=== PATIENT | female | born 1945 | race Caucasian/White ===

== ENCOUNTER → 2017-07-26 16:36 | Outpatient (CLI) | payer MEDICARE, MEDICAID, SELFPAY | PROVIDERS: PCP Family Medicine; Visit Provider Family Medicine | DX: R00.2 Palpitations (principal) | CPT/HCPCS: 93005; 93225; 93226 ==

== ENCOUNTER → 2018-05-11 09:57 | Outpatient (CLI) | payer MEDICARE, MEDICAID, SELFPAY ==
--- NOTE | 2018-05-11 10:08 | XR_ITS ---
XR chest 2V HISTORY: Shortness of breath and cough ITS.REASON: BRONCHITIS ORDERING PHYSICIAN: Fady Turcios MD PATIENT AGE: 72 years COMPARISON: 04/28/2016 FINDINGS: The cardiomediastinal silhouette and pulmonary vascularity are within normal limits. The lungs are clear without infiltrates, suspicious nodules, or pleural effusions. No acute bony abnormalities. IMPRESSION: No change with no acute finding
== END ==
PROVIDERS: PCP Family Medicine; Visit Provider Family Medicine
DX: J40 Bronchitis, not specified as acute or chronic (principal); R06.02 Shortness of breath; R05 Cough
CPT/HCPCS: 71046

== ENCOUNTER 2020-01-16 16:49 | Observation (INO) | payer MEDICARE, MEDICAID, SELFPAY ==
[2020-01-16] VITALS (8 sets, daily range): BP systolic 123–162; BP diastolic 71–90; PULSE 69–94; RESP 16–21; TEMP 36.7; O2SAT 95–99; BMI 37.2; BMI 35.6
--- NOTE | 2020-01-16 17:00 | XR_ITS ---
PROCEDURE: XR CHEST PORTABLE CLINICAL HISTORY: dizziness COMPARISON: CR CXR CHEST(2 VIEWS-NOT PORTABLE) from 04/22/2016 CR CXR CHEST(2 VIEWS-NOT PORTABLE) from 04/28/2016 CR CXR2V XR chest 2V from 05/11/2018 FINDINGS: Cardiac size is upper limits of normal. No evidence of CHF. Small hiatal hernia suspected. No lobar consolidation or collapse. There is increased density in the right perihilar region which may be due to vascular overlap and may be confirmed with follow-up PA and lateral chest. Degenerative changes of shoulders. IMPRESSION: Small hiatal hernia otherwise negative. Please see above for detailed description Dictated by: Danny Diaz MD 01/17/2020 05:34 Danny Diaz MD in [facility] 01/17/2020 05:34
--- NOTE | 2020-01-16 17:22 | PC.NURSE ---
rad at BS for portable chest xray
[2020-01-16 17:55] LABS: Basophils % 0.1 % (0.1-2.0); Eosinophils # 0.2 K/mm3 (0.0-0.4); Eosinophils % 1.3 % (0.1-12.0); Hematocrit 46.4 % (37.0-47.0); Lymphocytes # 0.9 K/mm3 (0.7-4.5); Lymphocytes % 6.3 % (10-50); Mean Corpuscular HGB Conc 32.3 g/dL (31.8-35.4); Mean Corpuscular Hemoglobin 28.8 pg (27.0-31.2); Mean Corpuscular Volume 89.3 fl (81-99); Mean Platelet Volume 8.3 fl (7.4-10.4); Monocytes # 0.4 K/mm3 (0.1-1.0); Monocytes % 2.7 % (1.7-9.3); Neutrophils % 89.5 % (37.0-80.0); Platelet Count 342 K/mm3 (142-424); Red Blood Count 5.19 M/mm3 (4.20-5.40); Red Cell Distribution Width 13.5 % (11.5-17.5); White Blood Count 14.5 K/mm3 (4.8-10.8)
[2020-01-16 17:59] LABS: Chloride 102 mmol/L (98-107); MANUAL DIFFERENTIAL MANUAL DIFFERENTIAL (MANUAL DIFF); Sodium 137 mmol/L (136-145)
[2020-01-16 18:00] LABS: Potassium 3.9 mmoL/L (3.5-5.1)
--- NOTE | 2020-01-16 18:01 | HMH.EDGENADL ---
ED Disposition Clinical Impression: Vertigo Disposition: Admitted as Observation Condition on Discharge: Fair - Critical Care Critical Care Time: No Attestation: On 01/16/20, the high probability of a clinically significant, sudden or life threatening deterioration of the following system(s) required my full and direct attention, intervention and personal management. The time I documented below is in addition to time spent performing reported procedures but includes the following listed in this critical care notation. Medical Decision Making - Medical Records Medical records reviewed: Yes: I reviewed the patient's medical records. - [place] Inquiry Pt receiving controlled substance: Yes (Diazepam for vertigo) [place] was queried for this patient: No Risks and benefits of using a controlled substance: were not discussed with pt by me Vital Signs: 01/16/20 16:49 01/16/20 19:00 01/16/20 19:30 Pulse Rate [Left Radial] 83 90 69 Respiratory Rate 21 17 17 Blood Pressure [Right Arm] 156/87 H 162/90 H 141/79 H Blood Pressure Mean [Right Arm] 110 114 99 Blood Pressure Source [Right Arm] Automatic Cuff Automatic Cuff Automatic Cuff Blood Pressure Position [Right Arm] Sitting Supine Supine 02 Sat by Pulse Oximetry 97 95 99 Oxygen Delivery Method Room Air Room Air 01/16/20 20:00 01/16/20 20:30 Pulse Rate [Left Radial] 82 94 H Respiratory Rate 17 17 Blood Pressure [Right Arm] 146/71 H 135/87 Blood Pressure Mean [Right Arm] 96 103 Blood Pressure Source [Right Arm] Automatic Cuff Automatic Cuff Blood Pressure Position [Right Arm] Supine Supine 02 Sat by Pulse Oximetry 97 96 Oxygen Delivery Method Room Air Room Air - Lab Data Lab results reviewed: Yes: I reviewed the patient's lab results. Lab Results 01/16/20 17:46: WBC 14.5 H, RBC 5.19, Hgb 15.0, Hct 46.4, MCV 89.3, MCH 28.8, MCHC 32.3, RDW 13.5, Plt Count 342, MPV 8.3, Neut % (Auto) 89.5 H, Lymph % (Auto) 6.3 L, [place] % (Auto) 2.7, Eos % (Auto) 1.3, Baso % (Auto) 0.1, Neut # (Auto) 13.0 H, Lymph # (Auto) 0.9, [place] # (Auto) 0.4, Eos # (Auto) 0.2, Baso # (Auto) 0.0, Total Counted 100, Neutrophils % (Manual) 87 H, Lymphocytes % (Manual) 9 L, Monocytes % (Manual) 4, Platelet Estimate Normal, RBC Morphology Normal 01/16/20 17:46: Sodium 137, Potassium 3.9, Chloride 102, Carbon Dioxide 27, Anion Gap 11.9, BUN 16, Creatinine 0.80, Estimated Creat Clear 74, Estimated GFR 70, Est GFR ( Amer) 85, Glucose 130 H, Calcium 10.5 H, Total Bilirubin 0.5, AST 29, ALT 19, Alkaline Phosphatase 119, Total Protein 7.9, Albumin 4.6, Globulin 3.3 H, Albumin/Globulin Ratio 1.4, Amylase 41, Lipase 53 Result diagrams: 01/16/20 17:46 01/16/20 17:46 Orders (Tests/Meds): ED MEDICATIONS Generic Name Dose Route Start Last Admin Trade Name Freq PRN Reason Stop Dose Admin Sodium Chloride 1,000 mls @ 999 mls/hr 01/16/20 17:00 01/16/20 18:48 Sod Chlor 0.9% 1000ml Bag IV 01/16/20 18:00 999 mls/hr .Q1H1M EDUARDO Administration Discontinued Medications Generic Name Dose Route Start Last Admin Trade Name Freq PRN Reason Stop Dose Admin Diazepam 2.5 mg 01/16/20 18:28 01/16/20 18:49 Diazepam 10mg/2ml Syringe IV 01/16/20 18:29 2.5 mg ONCE ONE Administration Ondansetron HCl 4 mg 01/16/20 18:28 01/16/20 18:49 Ondansetron 4mg/2ml Vial IV 01/16/20 18:29 4 mg ONCE ONE Administration Promethazine HCl 12.5 mg 01/16/20 18:28 01/16/20 18:49 Promethazine Hcl 25mg/Ml 1ml Vial IV 01/16/20 18:29 12.5 mg ONCE ONE Administration Sodium Chloride 25 ml 01/16/20 18:28 01/16/20 18:48 Sodium Chloride 0.9% 25ml Bag IV 01/16/20 18:29 25 ml ONCE ONE Administration ORDERS Category Date Time Status CT head/brain wo con Stat Cat Scan 10/13/20 18:29 Taken XR chest portable Stat Exams 01/16/20 17:00 Taken Covid-19 IgG/IgM ([facility]) Stat Lab 01/16/20 17:46 Received - CT Data CT Scan: Head Time Received: 19:30 ([facility] fax) Preliminary Findings: Norm
[2020-01-16 18:02] LABS: Alanine Aminotransferase 19 U/L (12-78); Alkaline Phosphatase 119 U/L (38-126); Amylase 41 U/L (30-110); Anion Gap 11.9 mEq/L (5-15); Aspartate Amino Transferase 29 U/L (14-36); Bilirubin,Total 0.5 mg/dl (0.2-1.3); Blood Urea Nitrogen 16 mg/dl (7-17); Calcium 10.5 mg/dl (8.4-10.2); Carbon Dioxide 27 mmol/L (22.0-30.0); Creatinine Clearance Estimated 74 mL/min (50-200); Estimated Glomerular Filt Rate 70 ml/min (>60); GFR (African American) 85 ML/MIN (>60); Glucose 130 mg/dl (74-100); Lipase 53 U/L (23-300)
[2020-01-16 18:03] LABS: Albumin Level 4.6 g/dl (3.5-5.0); Albumin/Globulin Ratio 1.4 (1.1-1.8); Globulin 3.3 g/dL (1.3-3.2); Total Protein,Serum 7.9 g/dl (6.3-8.2)
[2020-01-16 18:22] LABS: Lymphocytes % 9 % (10-50); Monocytes % 4 % (2-9); Neutrophils % 87 % (42-76); RBC Morphology Normal; Total Cells Counted 100
--- NOTE | 2020-01-16 18:29 | CT_ITS ---
PROCEDURE: CT HEAD/BRAIN WO CON CLINICAL INDICATION: vertigo Vertigo and dizziness, nausea and vomiting COMPARISON: None TECHNIQUE: Axial images obtained. All CT scans at the facility use one or more dose reduction, viz: automated exposure control, ma/kV adjustment per patient size (including targeted exams where dose is matched to indication, i.e. head), or iterative reconstruction technique. FINDINGS: No midline shift, mass effect, intracranial hemorrhage, hydrocephalus, or extra-axial fluid collection is evident. There is a low-density area within the right frontal bone measuring approximately 1 cm at another smaller area just medial to this region. Possibly due to a hemangioma. Stability may be confirmed with follow-up.. No mastoid effusion. No sinus air-fluid level. IMPRESSION: 1. No acute finding. 2. Two low-density areas in the right frontal bone possibly related to hemangiomas. Stability may be confirmed with follow-up Dictated by: Danny Diaz MD 01/17/2020 06:58 Danny Diaz MD in [facility] 01/17/2020 06:58
[2020-01-16 18:41] LABS: Platelet Estimate Normal
--- NOTE | 2020-01-16 18:50 | ECG_ITS ---
APPROVED REPORT Exam: Resting ECG HR:91 bpm ECG Measurements Heart Rate 91 AXES AR 174 P 41 QRSd 142 QRS 47 QT 398 T -3 QTc 489 Conclusion Normal sinus rhythm Left atrial abnormality Right bundle branch block T wave abnormality, consider inferior ischemia Abnormal ECG Electronically signed by : Justyn Pavon, 01/21/2020 09:50:53
--- NOTE | 2020-01-16 18:50 | PC.NURSE ---
Pt to radiology
[2020-01-16 20:55] LABS: Coronavirus 19 IgG Antibody Negative (Negative); Coronavirus 19 IgM Antibody Negative (Negative)
--- NOTE | 2020-01-16 23:34 | PC.NURSE ---
patient up to floor via stretcher.
[2020-01-17] VITALS: BP 146/79; PULSE 94; RESP 22; TEMP 36.9; O2SAT 94
[2020-01-17 04:00] VITALS: BP 125/60; PULSE 61; RESP 18; TEMP 37.1; O2SAT 97
--- NOTE | 2020-01-17 04:01 | PC.NURSE ---
SINCE ADMISSION, A&OX3. DRAIN CLEANER PLUMBER EQUAL BILAT. LUNGS CLEAR T/O AUSCULTATION. TOLERATED RA WELL. PULSES +2. ABDOMEN NONDISTENDED ACTIVE BOWEL SOUNDS, SOFT AND NONTENDER PER PALPATION. C/O NAUSEA, HAGEN AND DIZZINESS THIS SHIFT. MEDICATED PER MAR FOR COMPLAINTS. ON REASSESSMENT PT NOTED IN BED RESTING WITH EYES CLOSED. VSS. WILL CONTINUE TO MONITOR.
[2020-01-17 08:00] VITALS: BP 142/61; PULSE 72; RESP 20; TEMP 36.8; O2SAT 95
--- NOTE | 2020-01-17 08:40 | HMH.HP ---
*Chief complaint: dizziness <Caty Fernandes 01/17/20 09:03> *History of present illness: Ms. Gomez is a 74-year-old female with a history of arthritis, esophageal reflux, dizziness and seasonal allergies who presented to [facility] emergency room for evaluation after experiencing severe dizziness with nausea and vomiting for 2 days. She states the first day she finally made it to the recliner and stayed there most of the day. She had much difficulty in going to her bathroom. She states she has not eaten or had much to drink due to her nausea and vomiting. She had to crawl on the floor in order to make it to the phone to seek help. With evaluation in the emergency room she had a CT of the head that showed no acute findings and 2 low-density areas in the right frontal bone possibly related to a hemangiomas. Chest x-ray showed no acute changes. White blood cell count was noted to be at 14,500 with 89.5% neutrophils. Blood chemistries show normal electrolytes with a BUN of 16 and creatinine of 0.8. COVID IgG and IgM were both negative. Patient was seen in the office in October 2019 with dizziness and treated for seasonal allergies with antihistamines and Flonase. She states this did help. She has never experienced dizziness to this extent. She denies chest pain and shortness of breath. She does have a headache this morning and is somewhat sleepy. She did receive IV Phenergan and was started on normal saline at 100 an hour after receiving bolus fluids. She is also received IV diazepam for the vertigo as well as meclizine. She has been up to the bedside commode and the dizziness persists although she is not quite as nauseated and has not vomited. <Caty Fernandes - 01/17/20 09:03> [facility] History Medical History: Reports:: Atrial Fibrillation, Gastroesophageal Reflux Disease(GERD), Palpitations Denies:: Diabetes Mellitus Type 1 <Caty Fernandes 01/17/20 09:03> *Have you ever received a pneumonia vaccine?: No <Caty Fernandes 01/17/20 09:03> *Have you received a flu vaccine this season?: No <Caty Fernandes 01/17/20 09:03> Other Medical History: Reports: Arthritis <Caty Fernandes 01/17/20 09:03> Other Surgeries: Yes: Appendectomy, Organ Transplant (Kidney), Tubal Ligation, Other <Caty Fernandes 01/17/20 09:03> - *Social History Last grade of school completed: GED <Caty Fernandes 01/17/20 09:03> Smoking Status: Never smoker <Caty Fernandes 01/17/20 09:03> Alcohol Intake: never <Caty Fernandes 01/17/20 09:03> *Occupational Status:: retired <Diya Fernandeshy 01/17/20 09:03> Household Members: none <[facility] 01/17/20 09:03> *Travel in the last 8 weeks: None <[facility] 01/17/20 09:03> Family Hx:: Cancer, Coronary Artery Disease, Diabetes, Heart Attack, Hyperlipidemia, Hypertension, Kidney Disease, Stroke, Substance abuse, Alcoholism <Diya Fernandeshy 01/17/20 09:03> Review of Systems - Constitutional Reports lack of energy, Denies chills, Denies fever(s) <Diya Fernandeshy 01/17/20 09:03> - Eyes Reports change in vision <DeanCaty 01/17/20 09:03> - ENT Reports headache(s), Denies facial pain, Denies sore throat <Diya Fernandeshy 01/17/20 09:03> - *Cardiovascular Reports leg swelling, Denies chest pain <DenaCaty 01/17/20 09:03> - *Respiratory Denies cough, Denies shortness of breath <[facility] 01/17/20 09:03> - *Gastrointestinal Reports bloating, Reports nausea, Reports vomiting, Denies abdominal pain, Denies vomiting blood, Denies black, tarry stools <iDya Fernandeshy 01/17/20 09:03> - *Genitourinary Denies difficulty urinating, Denies painful urination <Diya Fernandeshy 01/17/20 09:03> - *Musculoskeletal Reports joint pain <DenaCaty 01/17/20 09:03> - *Neurologic Reports dizziness, Denies abnormal hearing, Denies abnormal speech, Denies confusion, Denies headache(s), Denies numbness, Denies fainting, Denies weakness <Caty Fernandes - 01/17/20 09:03>
--- NOTE | 2020-01-17 09:27 | HMH.PHAVTE ---
[facility] Pharmacy VTE Monitoring - Patient Demographics Admission date: 01/16/20 Report Date: 01/17/20 Time: 09:27 Allergies/Adverse Reactions: Patient Allergies codeine [CODEINE] Allergy (Unknown, Verified 01/16/20 18:37) DIZZY/N/V Height: 1.6 m Weight: 91.257 kg Patient Problems: Current Active Problems Vertigo (Acute) Nausea and vomiting (Acute) Leukocytosis (Acute) - VTE Risk Labs: VTE Related Lab Results Hgb 15.0 g/dL (12.2-16.2) 01/16/20 17:46 Hct 46.4 % (37.0-47.0) 01/16/20 17:46 Plt Count 342 K/mm3 (142-424) 01/16/20 17:46 BUN 16 mg/dl (7-17) 01/16/20 17:46 Creatinine 0.80 mg/dl (0.52-1.04) 01/16/20 17:46 Estimated Creat Clear 74 mL/min (50-200) 01/16/20 17:46 VTE Score: 4 VTE Risk Level: Low Risk - Prophylaxis VTE Prophylaxis Ordered?: Yes Types of VTE Prophylaxis: TEDS Knee High Location of Applied Device: Bilateral Lower Extremeties
[2020-01-17 09:40] LABS: Basophils % 0.3 % (0.1-2.0); Eosinophils # 0.1 K/mm3 (0.0-0.4); Hematocrit 41.6 % (37.0-47.0); Lymphocytes # 2.3 K/mm3 (0.7-4.5); Lymphocytes % 15.9 % (10-50); Mean Corpuscular HGB Conc 30.4 g/dL (31.8-35.4); Mean Corpuscular Hemoglobin 27.7 pg (27.0-31.2); Mean Corpuscular Volume 91.2 fl (81-99); Mean Platelet Volume 8.5 fl (7.4-10.4); Neutrophils # 10.9 K/mm3 (1.8-7.8); Neutrophils % 75.8 % (37.0-80.0); Platelet Count 296 K/mm3 (142-424); Red Blood Count 4.56 M/mm3 (4.20-5.40); Red Cell Distribution Width 13.7 % (11.5-17.5); White Blood Count 14.4 K/mm3 (4.8-10.8)
[2020-01-17 10:33] LABS: Hemoglobin 12.8 g/dL (12.2-16.2)
--- NOTE | 2020-01-17 11:52 | PC.NURSE ---
Pt alert and oriented and able to make needs known. RR even and unlabored. Pt did receive pepcid r/t acid reflux and has not c/o since receiving. Lungs cta, bs x 4, has eulalia up to bsc to urinate. Awaiting another urination for u/a. Remains safe. CB in reach. VSS.Giovanni hose in place to ble.
[2020-01-17 15:03] LABS: Microscopic, Urine URINE MICROSCOPIC (MICROSCOPIC)
[2020-01-17 15:05] LABS: Appearance,Urine CLEAR (Clear); Bilirubin,Urine Negative (Negative); Blood, Urine Negative (Negative); Color,Urine YELLOW (Yellow); Glucose,Urine (UA) Negative (Negative); Ketones,Urine Negative (Negative); Leukocyte Esterase,Urine 1+ (Negative); Nitrate,Urine Negative (Negative); PH,Urine 6.5 (5.0-8.5); Protein,Urine Negative (Negative); Urobilinogen,Urine 0.2 EU/dl (0.2)
[2020-01-17 15:20] VITALS: BP 150/67; PULSE 52; RESP 18; TEMP 36.8; O2SAT 95
--- NOTE | 2020-01-17 17:42 | PC.NURSE ---
IV in L AC infiltrated, new IV was placed in LAC with NS 100 ml/hr. CB in reach. Pt has resting most of shift. No c/o at this time. Has been up to bsc. VSS. MX continues. Alert and oriented x 4. Has tolerated diet this shift.
--- NOTE | 2020-01-17 19:17 | PC.NURSE ---
report given to jillian
[2020-01-17 20:04] VITALS: BP 148/88; PULSE 60; RESP 14; TEMP 37.1; O2SAT 95
--- NOTE | 2020-01-18 03:16 | PC.NURSE ---
Pt complained of dizziness while in bed, while reassessing pt condition pt noted to be sleeping, Complained of headache and administered tylenol per MAR, effectiveness noted, No complaints of N/V/D or SOA during shift, TEDs in place, IV intact and patent
[2020-01-18 04:00] VITALS: BP 156/78; PULSE 54; RESP 14; TEMP 36.6; O2SAT 95
--- NOTE | 2020-01-18 05:39 | PC.NURSE ---
Bed scale not working and patient was too dizzy to get on a standing scale. Patient's nurse notified.
--- NOTE | 2020-01-18 05:52 | PC.NURSE ---
Bedscale not working on Pts bed, Pt reports too dizzy to stand, will try to re-weigh at later time, will pass on to oncoming nurse
--- NOTE | 2020-01-18 08:43 | HMH.ACPN2 ---
<Mellisa Lucas - Last Filed: 01/18/20 08:43> Internal Medicine - PN: Subj *Date: 01/18/20 *Time: 07:40 Interval history: She has rested well overnight. She is still experiencing dizziness and vertigo with movement. She has nausea only with severe dizziness and has tolerated clears without emesis. She denies any pain. Exam Vital signs and Labs for Last 24 Hours: Temp Pulse Resp BP Pulse Ox 97.8 F 54 L 14 156/78 H 95 01/18/20 04:00 01/18/20 04:00 01/18/20 04:00 01/18/20 04:00 01/18/20 04:00 Laboratory Results - last 24 hr 01/17/20 09:20: WBC 14.4 H, RBC 4.56, Hgb 12.8 D, Hct 41.6, MCV 91.2, MCH 27.7, MCHC 30.4 L, RDW 13.7, Plt Count 296, MPV 8.5, Neut % (Auto) 75.8, Lymph % (Auto) 15.9, [place] % (Auto) 7.0, Eos % (Auto) 1.0, Baso % (Auto) 0.3, Neut # (Auto) 10.9 H, Lymph # (Auto) 2.3, [place] # (Auto) 1.0, Eos # (Auto) 0.1, Baso # (Auto) 0.0 01/17/20 14:39: Urine Color Yellow, Urine Appearance Clear, Urine pH 6.5, Ur Specific [place] 1.010, Urine Protein Negative, Urine Glucose (UA) Negative, Urine Ketones Negative, Urine Blood Negative, Urine Nitrate Negative, Urine Bilirubin Negative, Urine Urobilinogen 0.2, Ur Leukocyte Esterase 1+ A, Urine WBC 5-10, Ur Squamous Epith Cells 5-10 I & O for Last 24 hours: Intake & Output 01/15/20 01/16/20 01/17/20 01/18/20 11:59 11:59 11:59 11:59 Intake Total 1653 / 1653 2958 / 2958 Output Total 650 / 650 2300 / 2300 Balance 1003 / 1003 658 / 658 Weight 201 lb 3 oz 0 oz - Constitutional no acute distress - *Routine HEENT Exam Head: Present: normocephalic ENT: Present: mucous membranes moist - *Routine Respiratory Exam Present: CTA bilaterally - *Routine Cardiovascular Exam Present: RRR - *Routine Abdominal Exam Present: soft, normoactive bowel sounds. Absent: tenderness, distended, guarding, firm, rigid - *Routine Extremities Exam Present: full ROM, pulses intact, GATITO stockings. Absent: edema, calf tenderness - *Routine Neurological Exam Present: alert, oriented X3, normal speech Assessment and Plan (1) Vertigo Status: Acute Category: Medical Code(s): R42 - Dizziness and giddiness (2) Nausea and vomiting Status: Acute Category: Medical Code(s): R11.2 - Nausea with vomiting, unspecified (3) Leukocytosis Status: Acute Category: Medical Code(s): D72.829 - Elevated white blood cell count, unspecified - Assessment and plan all Dx Assessment and Plan for all problems:: She has been started on Levaquin for UTI. Culture pending. Will advance her diet. Further per Dr. Knox. <Kalyan Knox - Last Filed: 01/18/20 13:45> Internal Medicine - PN: Subj *Date: 01/18/20 *Time: 13:41 Exam Vital signs and Labs for Last 24 Hours: Temp Pulse Resp BP Pulse Ox 97.8 F 54 L 14 156/78 H 95 01/18/20 04:00 01/18/20 04:00 01/18/20 04:00 01/18/20 04:00 01/18/20 04:00 Laboratory Results - last 24 hr 01/17/20 14:39: Urine Color Yellow, Urine Appearance Clear, Urine pH 6.5, Ur Specific [place] 1.010, Urine Protein Negative, Urine Glucose (UA) Negative, Urine Ketones Negative, Urine Blood Negative, Urine Nitrate Negative, Urine Bilirubin Negative, Urine Urobilinogen 0.2, Ur Leukocyte Esterase 1+ A, Urine WBC 5-10, Ur Squamous Epith Cells 5-10 I & O for Last 24 hours: Intake & Output 01/16/20 01/17/20 01/18/20 01/19/20 11:59 11:59 11:59 11:59 Intake Total 1653 / 1653 3438 / 3438 Output Total 650 / 650 2300 / 2300 Balance 1003 / 1003 1138 / 1138 Weight 201 lb 3 oz 0 oz Assessment and Plan (1) Vertigo Status: Acute Category: Medical Code(s): R42 - Dizziness and giddiness (2) Nausea and vomiting Status: Acute Category: Medical Code(s): R11.2 - Nausea with vomiting, unspecified (3) Leukocytosis Status: Acute Category: Medical Code(s): D72.829 - Elevated white blood cell count, unspecified - Assessment and plan all Dx Assessment and Plan for all problems::
--- NOTE | 2020-01-18 10:40 | SW/DCPLANNER ---
Addendum entered by Juana Harris 01/22/20 13:00: I have contacted Vianney Vernon regarding [facility] for this patient. Original Note: I have spoke with this patient regarding transportation at discharge: it was brought to my attention that this patient stated in morning rounds she would not have a ride home at discharge. I spoke with this patient this morning and she stated that she will have a ride home. Patient stated she spoke with a friend this morning who could transport her. I have provided patient with a [employer] sheet in case she needs it in the future. Patient may discharge home tomorrow.
--- NOTE | 2020-01-18 16:46 | PC.NURSE ---
No acute changes to note from previous assessment. NO IV. Taking all oral meds and tolerating her bland diet well. Urine output over 2000 ml of clear yellow urine this shift. Denies vertigo at this time.
[2020-01-18 17:46] VITALS: BP 141/76; PULSE 59; RESP 20; TEMP 36.8; O2SAT 100
--- NOTE | 2020-01-18 19:11 | PC.NURSE ---
report given to zachary
[2020-01-18 20:00] VITALS: BP 144/50; PULSE 64; RESP 20; TEMP 36.9; O2SAT 94
[2020-01-18 20:15] VITALS: PULSE 64; RESP 20; O2SAT 94
[2020-01-19 04:00] VITALS: BP 167/85; PULSE 58; RESP 18; TEMP 36.6; O2SAT 93
[2020-01-19 05:16] VITALS: BMI 35.6
--- NOTE | 2020-01-19 05:53 | PC.NURSE ---
shift summary, no acute changes since prior assessment, pt has rested well t/o shift, pt has had no complaints of N/V or dizziness this shift, pt has used BSC this shift
[2020-01-19 08:00] VITALS: BP 150/73; PULSE 67; RESP 16; TEMP 36.6; O2SAT 93
[2020-01-19 08:30] VITALS: O2SAT 93
--- NOTE | 2020-01-19 08:48 | HMH.ACPN2 ---
<Mellisa Lucas - Last Filed: 01/19/20 08:48> Internal Medicine - PN: Subj *Date: 01/19/20 *Time: 07:40 Interval history: Pt is resting quietly in bed. She denies pain. She continues with dizziness with any movement, sometimes accompanied by nausea. She has tolerated diet well. She is voiding qshift. She has been unable to produce BM since admission and would like to have miralax started. Exam Vital signs and Labs for Last 24 Hours: Temp Pulse Resp BP Pulse Ox 97.8 F 67 16 150/73 H 93 L 01/19/20 08:00 01/19/20 08:00 01/19/20 08:00 01/19/20 08:00 01/19/20 08:00 Laboratory Results - last 24 hr 01/17/20 14:39: Urine Color Yellow, Urine Appearance Clear, Urine pH 6.5, Ur Specific [place] 1.010, Urine Protein Negative, Urine Glucose (UA) Negative, Urine Ketones Negative, Urine Blood Negative, Urine Nitrate Negative, Urine Bilirubin Negative, Urine Urobilinogen 0.2, Ur Leukocyte Esterase 1+ A, Urine WBC 5-10, Ur Squamous Epith Cells 5-10 I & O for Last 24 hours: Intake & Output 01/16/20 01/17/20 01/18/20 01/19/20 11:59 11:59 11:59 11:59 Intake Total 1653 / 1653 3438 / 3438 1100 / 1100 Output Total 650 / 650 2300 / 2300 4000 / 4000 Balance 1003 / 1003 1138 / 1138 -2900 / -2900 Weight 201 lb 3 oz 0 oz 201 lb 4 oz Microbiology Reports for the Last 24 Hours: Microbiology 01/17/20 14:39 Urine,Clean Catch Urine Culture - Preliminary Gram Negative Rods - Constitutional no acute distress - *Routine HEENT Exam Head: Present: normocephalic ENT: Present: mucous membranes moist - *Routine Respiratory Exam Present: CTA bilaterally - *Routine Cardiovascular Exam Present: RRR - *Routine Abdominal Exam Present: soft, normoactive bowel sounds. Absent: tenderness, distended, guarding, firm, rigid - *Routine Extremities Exam Present: full ROM, pulses intact. Absent: edema, calf tenderness - *Routine Neurological Exam Present: alert, oriented X3, normal speech Assessment and Plan (1) Vertigo Status: Acute Category: Medical Code(s): R42 - Dizziness and giddiness (2) Nausea and vomiting Status: Acute Category: Medical Code(s): R11.2 - Nausea with vomiting, unspecified (3) Leukocytosis Status: Acute Category: Medical Code(s): D72.829 - Elevated white blood cell count, unspecified - Assessment and plan all Dx Assessment and Plan for all problems:: Will add miralax. Continue current care. Further per Dr. Knox. <Kalyan Knox - Last Filed: 01/19/20 13:22> Internal Medicine - PN: Subj *Date: 01/19/20 *Time: 13:19 Exam Vital signs and Labs for Last 24 Hours: Temp Pulse Resp BP Pulse Ox 97.8 F 67 16 150/73 H 93 L 01/19/20 08:00 01/19/20 08:00 01/19/20 08:00 01/19/20 08:00 01/19/20 08:30 Laboratory Results - last 24 hr 01/17/20 14:39: Urine Color Yellow, Urine Appearance Clear, Urine pH 6.5, Ur Specific [place] 1.010, Urine Protein Negative, Urine Glucose (UA) Negative, Urine Ketones Negative, Urine Blood Negative, Urine Nitrate Negative, Urine Bilirubin Negative, Urine Urobilinogen 0.2, Ur Leukocyte Esterase 1+ A, Urine WBC 5-10, Ur Squamous Epith Cells 5-10 I & O for Last 24 hours: Intake & Output 01/17/20 01/18/20 01/19/20 01/20/20 11:59 11:59 11:59 11:59 Intake Total 1653 / 1653 3438 / 3438 1100 / 1100 Output Total 650 / 650 2300 / 2300 4000 / 4000 Balance 1003 / 1003 1138 / 1138 -2900 / -2900 Weight 201 lb 3 oz 0 oz 201 lb 4 oz Microbiology Reports for the Last 24 Hours: Microbiology 01/17/20 14:39 Urine,Clean Catch Urine Culture - Preliminary Gram Negative Rods Assessment and Plan (1) Vertigo Status: Acute Category: Medical Code(s): R42 - Dizziness and giddiness (2) Nausea and vomiting Status: Acute Category: Medical Code(s): R11.2 - Nausea with vomiting, unspecified (3) Leukocytosis Status: Acute Category: M
[2020-01-19 16:00] VITALS: BP 145/70; PULSE 60; RESP 20; TEMP 37; O2SAT 94
--- NOTE | 2020-01-19 16:16 | PC.NURSE ---
A&OX4. PT HAS TOLERATED ROOM AIR WELL THROUGHOUT SHIFT. RESPIRATIONS REGULAR AND UNLABORED. LUNG SOUNDS BILATERALLY CLEAR. NO COUGH NOTED. +2 PULSES NOTED THROUGHOUT. HAND CHARGE AIDE EQUAL. SOFT AND TENDER ABDOMEN. HYPOACTIVE BOWEL SOUNDS HEARD IN ALL 4 QUADRANTS. PT REPORTS NOT HAVING BM SINCE WEDNESDAY. MIRALAX WAS GIVEN AND PT STATES IT DIDN'T HELP. SHE WAS JUST PASSING FLATUS. DR RIZZO NOTIFIED AND DULCOLAX SUPPOSITORY WAS ORDERED. IT WAS ADMINISTERED AND PT JUST REPORTED HAVING A BM. CLEAR YELLOW URINE NOTED IN BSC. NO COMPLAINS OF PAIN OR NAUSEA THUS FAR. PT STATES SHE IS STILL DIZZY. SHE USES THE BSC INDEPENDENTLY. PT HAS BEEN ENCOURAGED TO USE CALL LIGHT IF SHE NEEDS HELP. PT IS CURRENTLY YLING IN BED RESTING. CALL LIGHT WITHIN REACH. BED IN LOWEST POSITION. VSS. WILL CONTINUE TO MONITOR.
--- NOTE | 2020-01-19 19:20 | PC.NURSE ---
report given to renetta
[2020-01-19 19:55] VITALS: BP 149/74; PULSE 70; RESP 16; TEMP 36.9; O2SAT 93
--- NOTE | 2020-01-20 01:23 | PC.NURSE ---
aware that pt has no IV access.
[2020-01-20 04:12] VITALS: BP 151/88; PULSE 63; RESP 18; TEMP 36.8; O2SAT 98
[2020-01-20 05:11] VITALS: BMI 35.6
--- NOTE | 2020-01-20 05:58 | PC.NURSE ---
shift summary, no acute changes since prior nurse's assessment this shift, pt has rested t/o shift, pt has had no complaints of N/V on this nurse, VSS
[2020-01-20 07:56] VITALS: BP 132/85; PULSE 67; RESP 20; TEMP 36.7; O2SAT 97
--- NOTE | 2020-01-20 08:46 | HMH.ACPN2 ---
Internal Medicine - PN: Subj *Date: 01/20/20 *Time: 08:46 Interval history: Nausea and vomiting have resolved. She is tolerating her diet. She is still dizzy but is tolerating activity better and feels she can manage at home with a walker. Exam Vital signs and Labs for Last 24 Hours: Temp Pulse Resp BP Pulse Ox 98.1 F 67 20 132/85 97 01/20/20 07:56 01/20/20 07:56 01/20/20 07:56 01/20/20 07:56 01/20/20 07:56 I & O for Last 24 hours: Intake & Output 01/17/20 01/18/20 01/19/20 01/20/20 11:59 11:59 11:59 11:59 Intake Total 1653 / 1653 3438 / 3438 1100 / 1100 600 / 600 Output Total 650 / 650 2300 / 2300 4000 / 4000 1300 / 1300 Balance 1003 / 1003 1138 / 1138 -2900 / -2900 -700 / -700 Weight 201 lb 3 oz 0 oz 201 lb 4 oz 201 lb Microbiology Reports for the Last 24 Hours: Microbiology 01/17/20 14:39 Urine,Clean Catch Urine Culture - Final Escherichia coli Narrative: Alert. No distress. Lungs clear to auscultation. Heart is regular. Abdomen soft and nondistended with no tenderness. Assessment and Plan (1) Vertigo Status: Acute Category: Medical Code(s): R42 - Dizziness and giddiness (2) Nausea and vomiting Status: Acute Category: Medical Code(s): R11.2 - Nausea with vomiting, unspecified (3) E. coli UTI Status: Acute Category: Medical Code(s): N39.0 - Urinary tract infection, site not specified; B96.20 - Unspecified Escherichia coli [E. coli] as the cause of diseases classified elsewhere - Assessment and plan all Dx Assessment and Plan for all problems:: Plan for discharge home today. Order sent to [facility] for Rollator walker. She will continue on meclizine for her dizziness. Continue Cipro 500 twice daily to complete course of treatment for her UTI. Will investigate obtaining a Lifeline monitor for her at home.
[2020-01-20 09:00] VITALS: O2SAT 97
--- NOTE | 2020-01-20 12:30 | PC.NURSE ---
A&OX4. PT TOLERATED ROOM AIR WELL THROUGHOUT SHIFT. RESPIRATIONS REGULAR AND UNLABORED. LUNG SOUNDS BILATERALLY CLEAR. SOFT AND NONTENDER ABDOMEN. ACTIVE BOWEL SOUNDS HEARD IN ALL 4 QUADRANTS. NO BM REPORTED THUS FAR. PT VOIDS PER BSC INDEPENDENTLY. HAND BREAKER OILER EQUAL. +2 PULSES NOTED THROUGHOUT. PT IS BEING DISCHARGED. LEESA DROPPED OFF WALKER FOR PT TO TAKE CARE. PHARMACY EDUCATED PT ON MEDICATIONS. DISCHARGE INSTRUCTIONS WERE GIVEN TO PT AND SHE VERBALIZED UNDERSTANDING. PT IS RESTING IN BED AWAITING RIDE. CALL LIGHT WITHIN REACH. BED IN LOWEST POSITION. VSS. WILL CONTINUE TO MONITOR.
--- NOTE | 2020-01-23 09:26 | HMH.DCSUM ---
General - General Admission date:: 01/16/20 <Kalyan Knox - 01/27/20 08:51> 01/16/20 <Caty Fernandes - 01/23/20 09:40> Discharge date: 01/20/20 <DenaCaty - 01/23/20 09:40> HPI HPI: Ms. Gomez is a 74-year-old female with a history of arthritis, esophageal reflux, dizziness and seasonal allergies who presented to [facility] emergency room for evaluation after experiencing severe dizziness with nausea and vomiting for 2 days. She stated the first day she finally made it to the recliner and stayed there most of the day. She had much difficulty in going to her bathroom. She stated she had not eaten or had much to drink due to her nausea and vomiting. She had to crawl on the floor in order to make it to the phone to seek help. With evaluation in the emergency room she had a CT of the head that showed no acute findings and 2 low-density areas in the right frontal bone possibly related to a hemangiomas. Chest x-ray showed no acute changes. White blood cell count was noted to be at 14,500 with 89.5% neutrophils. Blood chemistries showed normal electrolytes with a BUN of 16 and creatinine of 0.8. COVID IgG and IgM were both negative. Patient was seen in the office in October 2019 with dizziness and treated for seasonal allergies with antihistamines and Flonase. She stated this did help. She had never experienced dizziness to this extent. She denied chest pain and shortness of breath. She did have a headache the following morning and was somewhat sleepy. She did receive IV Phenergan and was started on normal saline at 100 an hour after receiving bolus fluids. She also received IV diazepam for the vertigo as well as meclizine. She had been up to the bedside commode and the dizziness persisted although she was not quite as nauseated and had not vomited. <Caty Fernandes - 01/23/20 09:40> Hospital Course Hospital Course: On admission IV fluids were continued as well as antiemetics. Meclizine and diazepam were scheduled. White blood cell count did remain elevated and urinalysis revealed a urinary tract infection ulcer eventually revealing E. coli sensitive to the antibiotic she was on. Patient continued to be dizzy with any movement which was sometimes accompanied by nausea. She was able to tolerate her diet. MiraLAX was added for constipation. 01/20/2020 nausea and vomiting had resolved. She continued to tolerate her diet. She was still dizzy but was tolerating activity better and felt she could manage at home with a walker. Therefore she was discharged home in stable and satisfactory condition. Order was sent to [facility] for a Rollator walker. She continued on meclizine for dizziness and Cipro for her treatment of her UTI. She will investigate obtaining a lifeline monitor for her at home. <Caty Fernandes - 01/23/20 09:40> Objective Vital signs: Temp Pulse Resp BP Pulse Ox 98.1 F 67 20 132/85 97 01/20/20 07:56 01/20/20 07:56 01/20/20 07:56 01/20/20 07:56 01/20/20 09:00 <LisetteKalyan Dylan - 01/27/20 08:51> Temp Pulse Resp BP Pulse Ox 98.1 F 67 20 132/85 97 01/20/20 07:56 01/20/20 07:56 01/20/20 07:56 01/20/20 07:56 01/20/20 09:00 <Caty Fernandes - 01/23/20 09:40> Narrative: Exam Vital signs and Labs for Last 24 Hours: Temp Pulse Resp BP Pulse Ox 98.1 F 67 20 132/85 97 01/20/20 07:56 01/20/20 07:56 01/20/20 07:56 01/20/20 07:56 01/20/20 07:56 I & O for Last 24 hours: Intake & Output 01/17/20 01/18/20 01/19/20 01/20/20 11:59 11:59 11:59 11:59 Intake Total 1653 / 1653 3438 / 3438 1100 / 1100 600 / 600 Output Total 650 / 650 2300 / 2300 4000 / 4000 1300 / 1300 Balance 1003 / 1003 1138 / 1138 -2900 / -2900 -700 / -700 Weight 201 lb 3 oz 0 oz 201 lb 4 oz 201 lb Microbiology Reports for the Last 24 Hours: Microbiology 01/17/20 14:39 Urine,Clean Catch Urine Culture - Final
== END 2020-01-20 12:35 | disposition home or self-care (01) ==
LOC: ER 20:20 → 2ND 20:32
PROVIDERS: Nurse Practitioner Family; Admitting Provider Family Medicine; Emergency Provider Emergency Medicine; PCP Family Medicine; Visit Provider Family Medicine
DX: N39.0 Urinary tract infection, site not specified (principal); I48.91 Unspecified atrial fibrillation; Z79.899 Other long term (current) drug therapy; R42 Dizziness and giddiness; B96.20 Unspecified Escherichia coli [E. coli] as the cause of diseases classified elsewhere; Z94.0 Kidney transplant status
CPT/HCPCS: 36415; 70450; 71045; 80053; 81001; 82150; 83690; 85007; 85025; 86328; 87086; 87088; 87186; 93005; 96365; 99284; G0378; J2405

== ENCOUNTER → 2020-02-13 13:46 | Outpatient (CLI) | payer MEDICARE, MEDICAID, SELFPAY ==
--- NOTE | 2020-02-13 13:56 | MR_ITS ---
PROCEDURE: MR HEAD/BRAIN WO CON CLINICAL INDICATION: memory loss Dizziness and blurry vision COMPARISON: CT CT HEAD/BRAIN WO CON from 01/16/2020 TECHNIQUE: Routine multiplanar multi echo sequences are performed without gadolinium enhancement. FINDINGS: No midline shift, mass effect, intracranial hemorrhage, or hydrocephalus. The cerebellopontine angles, cerebellum, and brainstem are unremarkable. No evidence of acute infarction. There are few scattered T2 white matter hyperintensities which are nonspecific and may be due to ischemic gliotic change from microvascular disease. The pituitary, optic chiasm, corpus callosum, and craniocervical junction have an unremarkable appearance. No mastoid effusion or sinus air-fluid levels evident. There is a small T2 hyperintensity in the left petrous bone medially. This is nonspecific and may be due to a small amount of fluid within a pneumatized petrous air cell. There is mild mucosal thickening of the left maxillary sinus. IMPRESSION: No acute intracranial findings. Please see above for detail. Dictated by: Danny Diaz MD 02/13/2020 16:06 Danny Diaz MD in [place] 02/13/2020 16:06
--- NOTE | 2020-02-13 13:56 | MR_ITS ---
PROCEDURE: MR ANGIO HEAD WO CON CLINICAL INDICATION: eval for posterior circulation pathology COMPARISON: No exams were available for comparison TECHNIQUE: 3D [id number] images are obtained with multi slab reformats. FINDINGS: No aneurysm, arteriovenous malformation, or major intracranial occlusive process. No severe stenotic lesions are demonstrated. IMPRESSION: Negative MRA of the brain Dictated by: Danny Diaz MD 02/13/2020 16:11 Danny Diaz MD in [place] 02/13/2020 16:11
== END ==
PROVIDERS: PCP Family Medicine; Visit Provider Specialist
DX: R42 Dizziness and giddiness (principal); I49.8 Other specified cardiac arrhythmias; R94.31 Abnormal electrocardiogram [ECG] [EKG]
CPT/HCPCS: 70544; 70551; 93270

== ENCOUNTER → 2020-02-20 09:21 | Outpatient (POV) | payer MEDICARE, MEDICAID, SELFPAY | PROVIDERS: Visit Provider Otolaryngology | DX: Z00.00 Encounter for general adult medical examination without abnormal findings (principal) ==

== ENCOUNTER 2020-02-20 13:55 | Outpatient (RCR) | payer MEDICARE, MEDICAID, SELFPAY ==
--- NOTE | 2020-02-20 15:11 | HMH.PTOPEV ---
PT Outpatient Evaluation Rehab PT Outpatient Evaluation Start: 02/20/20 14:44 Freq: Status: Active Protocol: Document 02/20/20 14:45 CAROLYNE (Rec: 02/20/20 15:11 PWHECTOR [id number]) Electronically Signed By Yaw Akers PT 02/20/20 14:45 Outpatient Therapy Subjective History Subjective History This is the initial Physical Therapy evaluation for Macy Franz. Pt is a 75 y/o female referred to PT for c/o vertigo . Pt reports ~1 month ago she rolled over in bed from L to R and the room started spinning . Pt reports she began projectile vomiting . Pt states she was able to make to her recliner where her symptoms slightly subsidied. Pt reports any movement she had after that caused reignition of symptoms. Pt rpeorts she fell asleep in the recliner. Pt reports the next day she woke up and was still having severe vertigo and vomitting. Pt reports she called EMS and was taken to ER. Pt report she was admitted to the hospital for 5 days and had dizziness for the first 3 days. Pt now reports she has cosistently mild c/o dizziness w/ ambulation and movement, nausea has passed. Chief Complaint Other Symptom Type Other Symptoms Relieved By Rest/Positioning Symptoms Aggravated By Physical Activity,Walking Prior Functional Limitations None Current Functional Limitations Housework,Driving,Sleeping, Recreation Activity,Walking, Balance Symptom Description Constant and Continuous Balance Eval Chief Complaint vertigo Yes Did you feel dizzy, unsteady or faint? Yes Activity at onset unknown Hx of Falls Hx Falls No Gait/Posture Asssessment General Gait Observation Wide Based Gait Assistive Devices None / NA Level of Transfer Assist Independent Body Alignment Posture Rigid Nystagmus Nystagmus Presence None Oculomotor Gaze Oculomotor Gaze
== END 2020-02-20 13:59 | disposition home or self-care (01) ==
LOC: PT 13:55
PROVIDERS: PCP Family Medicine; Visit Provider Nurse Practitioner Family
DX: R42 Dizziness and giddiness (principal); H70.20 Unspecified petrositis
CPT/HCPCS: 97110; 97163

== ENCOUNTER → 2020-03-19 10:05 | Outpatient (POV) | payer MEDICARE, MEDICAID, SELFPAY | PROVIDERS: Visit Provider Otolaryngology | DX: Z00.00 Encounter for general adult medical examination without abnormal findings (principal) ==

== ENCOUNTER → 2020-03-27 11:02 | Outpatient (CLI) | payer MEDICARE, OTHER, MEDICAID, SELFPAY ==
--- NOTE | 2020-03-27 11:05 | CA_ITS ---
APPROVED REPORT Supervisor Insecticide: CT Laterality: Bilateral Indications: syncope Doppler Spectral Velocity Analysis ECA (R) 67.00/ cm/s ECA (L) 72.00/ cm/s dICA (R) 84.50/29.90 cm/s dICA (L) 103.40/45.60 cm/s Ovi (R) 80.20/23.00 cm/s Ovi (L) 108.50/41.70 cm/s pICA (R) 33.80/12.30 cm/s pICA (L) 46.50/18.70 cm/s dCCA (R) 57.10/18.60 cm/s dCCA (L) 57.70/13.90 cm/s pCCA (R) 55.90/9.00 cm/s pCCA (L) 91.30/17.20 cm/s Vert (R) 49.40/ cm/s Vert (L) 36.40/ cm/s ICA/CCA 1.50 ICA/CCA 1.90 Findings Duplex evaluation demonstrates stenosis of the right proximal internal carotid artery <20% with PSV <140 cm/sec, EDV <100 cm/sec, and IC/CC Ratio <4.0. Duplex evaluation demonstrates stenosis of the left proximal internal carotid artery <20% with PSV <140 cm/sec, EDV <100 cm/sec, and IC/CC Ratio <4.0. Duplex evaluation demonstrates antegrade flow of the bilateral Vertebral Arteries. Conclusion Duplex evaluation demonstrates stenosis of the right proximal internal carotid artery <20% with PSV <140 cm/sec, EDV <100 cm/sec, and IC/CC Ratio <4.0. Duplex evaluation demonstrates stenosis of the left proximal internal carotid artery <20% with PSV <140 cm/sec, EDV <100 cm/sec, and IC/CC Ratio <4.0. Duplex evaluation demonstrates antegrade flow of the bilateral Vertebral Arteries. Electronically signed by : Danny Diaz MD 03/27/2020 15:55:37
--- NOTE | 2020-03-27 11:05 | CA_ITS ---
APPROVED REPORT EXAM: Comprehensive 2D, Doppler, and color-flow Echocardiogram Financial Compliance Officer: Brianne Baez RT(R) Ht: 5 ft 3 in Wt: 204lbs BSA: 1.95 BP: 126/80 mmHg Indications: COPD, Palpitations, syncope, AFIB, GERD, RBBB, dizziness 2D Dimensions LVOT 2.17 cm (M/F) 1.5-2.5 M-Mode Dimensions RVDd 2.15 cm (0.9-2.6) LA Diam 2.08 cm (1.9-4.0) LVDd 4.44 cm (3.5-5.7) Ao Diam 2.40 cm (2.0-3.7) LVDs 3.44 cm (3.5-5.7) IVSd 1.22 cm (0.6-1.1) PWd 0.79 cm (0.6-1.1) EF (Teich) 45.50% FS 22.50% EDV (Teich) 89.60 mL ESV (Teich) 48.80 mL Left Ventricle Left atrium is mildly enlarged, left ventricle is normal size, mild concentric left ventricular hypertrophy, visually estimated ejection fraction 55% with no regional wall motion abnormality, diastolic parameters are inconclusive. Right Ventricle Right atrium and right ventricle are normal size and contractility. Aortic Valve Aortic valve is minimally thickened and fibrosed, there is no aortic stenosis or aortic insufficiency. Mitral Valve Mitral valve is grossly normal, there is mild mitral regurgitation. Tricuspid Valve Tricuspid valve is grossly normal, there is mild tricuspid regurgitation, tricuspid regurgitation jet velocity is inadequate for calculation of the right ventricular systolic pressure. Pulmonic Valve Pulmonic valve is poorly visualized. Great Vessels Aortic root is normal size. Pericardium No significant pericardial effusion noted. Conclusion 1. Mildly enlarged left atrium, normal left ventricular size, mild concentric left ventricular hypertrophy, visually estimated ejection fraction 55% with no regional wall motion abnormality, diastolic parameters are inconclusive. 2. Mild mitral and tricuspid regurgitation. 3. No significant pericardial effusion noted. Electronically signed by : Charlie Reyna, 03/28/2020 12:42:56
== END ==
PROVIDERS: PCP Family Medicine; Visit Provider Physician Assistant
DX: I10 Essential (primary) hypertension (principal); I48.0 Paroxysmal atrial fibrillation; Q60.0 Renal agenesis, unilateral; R42 Dizziness and giddiness; R55 Syncope and collapse; Z86.718 Personal history of other venous thrombosis and embolism
CPT/HCPCS: 93306; 93880

== ENCOUNTER → 2020-05-18 12:11 | Outpatient (CLI) | payer MEDICARE, OTHER, MEDICAID, SELFPAY ==
--- NOTE | 2020-05-18 12:16 | XR_ITS ---
PROCEDURE: XR CHEST PORTABLE Referring Doctor: Vinh Babcock Patient Age:75Y CLINICAL HISTORY: COVID OUTPATIENT Cough nonsmoker COMPARISON: CR CXR CHEST(2 VIEWS-NOT PORTABLE) from 04/28/2016 CR CXR2V XR chest 2V from 05/11/2018 CR XR CHEST PORTABLE from 01/16/2020 FINDINGS: AP portable upright chest slight lordotic projection The lungs appear well expanded and clear with nothing definitely acute.. Only question some upper normal lung markings at the right mid lung and towards right lung base but overall I believe this appearance is stable.. Heart is normal in size but the cardiomediastinal silhouette and pulmonary vascularity are within normal limits. The lungs are clear without discrete infiltrates, suspicious nodules, or pleural effusions. No acute bony abnormalities. If symptoms progress follow-up chest studies recommended IMPRESSION: Nothing definitely acute Dictated by: Clayton Gray MD 05/18/2020 16:04 Clayton Gray MD in [place] 05/18/2020 16:04
[2020-05-18 12:42] LABS: Basophils # 0.1 K/mm3 (0-0.2); Basophils % 0.7 % (0.1-2.0); Eosinophils # 0.7 K/mm3 (0.0-0.4); Eosinophils % 6.1 % (0.1-12.0); Hematocrit 42.8 % (37.0-47.0); Lymphocytes # 2.7 K/mm3 (0.7-4.5); Lymphocytes % 24.2 % (10-50); Mean Corpuscular HGB Conc 32.7 g/dL (31.8-35.4); Mean Corpuscular Hemoglobin 29.1 pg (27.0-31.2); Mean Corpuscular Volume 88.8 fl (81-99); Mean Platelet Volume 8.4 fl (7.4-10.4); Monocytes # 0.5 K/mm3 (0.1-1.0); Monocytes % 4.8 % (1.7-9.3); Neutrophils % 64.3 % (37.0-80.0); Platelet Count 366 K/mm3 (142-424); Red Blood Count 4.81 M/mm3 (4.20-5.40); Red Cell Distribution Width 14.5 % (11.5-17.5)
== END ==
PROVIDERS: PCP Family Medicine; Visit Provider Family Medicine
DX: Z20.822 Contact with and (suspected) exposure to COVID-19 (principal); D72.829 Elevated white blood cell count, unspecified
CPT/HCPCS: 71045; 85025; U0003

== ENCOUNTER → 2021-02-05 14:56 | Outpatient (CLI) | payer MEDICARE, OTHER, MEDICAID, SELFPAY ==
--- NOTE | 2021-02-05 15:06 | XR_ITS ---
PROCEDURE: XR CHEST PORTABLE CLINICAL HISTORY: COVID OUTPATIENT COMPARISON: No exams were available for comparison FINDINGS: The cardiomediastinal silhouette and pulmonary vascularity are within normal limits. The lungs are clear without infiltrates, suspicious nodules, or pleural effusions. No acute bony abnormalities. IMPRESSION: No acute findings. Dictated by: Danny Diaz MD 02/05/2021 16:09 Danny Diaz MD in [place] 02/05/2021 16:09
[2021-02-05 16:03] LABS: Basophils # 0.1 K/mm3 (0-0.2); Basophils % 0.7 % (0.1-2.0); Eosinophils # 0.9 K/mm3 (0.0-0.4); Eosinophils % 6.3 % (0.1-12.0); Hematocrit 46.1 % (37.0-47.0); Lymphocytes # 2.2 K/mm3 (0.7-4.5); Lymphocytes % 16.1 % (10-50); Mean Corpuscular HGB Conc 32.5 g/dL (31.8-35.4); Mean Corpuscular Hemoglobin 29.3 pg (27.0-31.2); Mean Corpuscular Volume 90.2 fl (81-99); Mean Platelet Volume 9.9 fl (7.4-10.4); Monocytes # 0.8 K/mm3 (0.1-1.0); Neutrophils # 9.8 K/mm3 (1.8-7.8); Neutrophils % 70.9 % (37.0-80.0); Platelet Count 377 K/mm3 (142-424); Red Blood Count 5.12 M/mm3 (4.20-5.40); White Blood Count 13.8 K/mm3 (4.8-10.8)
== END ==
PROVIDERS: PCP Family Medicine; Visit Provider Family Medicine
DX: Z20.822 Contact with and (suspected) exposure to COVID-19 (principal)
CPT/HCPCS: 36415; 71045; 85025; C9803; U0003; U0005

== ENCOUNTER → 2021-08-01 16:17 | Outpatient (CLI) | payer MEDICARE, OTHER, MEDICAID, SELFPAY ==
--- NOTE | 2021-08-01 16:21 | XR_ITS ---
FINAL REPORT CLINICAL HISTORY: ACUTE PAIN OF RIGHT KNEE FINDINGS: RIGHT KNEE 3 views of the right knee were obtained. There is no acute fracture or dislocation. There is sharpening of the tibial spines. There are osteophytes along the undersurface of the patella. The joint spaces are preserved. Soft tissues are unremarkable. IMPRESSION: Mild changes of osteoarthritis at the patella femoral joint space and the tibial spines. Reviewed, Interpreted and Dictated by Julian Rivas MD Transcribed by Laura Uribe Authenticated by Julian Rivas MD on 08/01/2021 04:51:30 PM [facility]
== END ==
PROVIDERS: PCP Family Medicine; Visit Provider Physician Assistant
DX: M25.561 Pain in right knee (principal)
CPT/HCPCS: 73562

== ENCOUNTER → 2021-08-13 07:45 | Outpatient (CLI) | payer MEDICARE, OTHER, MEDICAID, SELFPAY | PROVIDERS: PCP Family Medicine; Visit Provider Physician Assistant | DX: R07.9 Chest pain, unspecified (principal) ==

== ENCOUNTER → 2021-08-21 06:20 | Outpatient (CLI) | payer MEDICARE, OTHER, MEDICAID, SELFPAY | PROVIDERS: PCP Family Medicine; Visit Provider Physician Assistant | DX: R07.9 Chest pain, unspecified (principal) | CPT/HCPCS: 78452; 93017; A9502; A9541; J2785 ==

== ENCOUNTER 2022-01-20 08:10 | Outpatient (RCR) | payer MEDICARE, OTHER, MEDICAID, SELFPAY | END 2022-01-20 08:15 | disposition home or self-care (01) | LOC: PT 08:10 | PROVIDERS: PCP Family Medicine; Visit Provider Family Medicine | DX: R42 Dizziness and giddiness (principal) | CPT/HCPCS: 97110; 97163 ==

== ENCOUNTER → 2022-12-23 10:17 | Outpatient (CLI) | payer MEDICARE, MEDICAID, SELFPAY ==
[2022-12-01 18:45] LABS: Coronavirus 19, PCR Not Detected (NotDetected); Influenza A, PCR Not Detected (NotDetected); Influenza B, PCR Not Detected (NotDetected)
[2022-12-01 18:54] LABS: Basophils % 0.5 % (0.1-2.0); Eosinophils # 0.7 K/mm3 (0.0-0.4); Eosinophils % 7.2 % (0.1-12.0); Hematocrit 47.2 % (37.0-47.0); Lymphocytes # 2.1 K/mm3 (0.7-4.5); Lymphocytes % 23.2 % (10-50); Mean Corpuscular HGB Conc 31.8 g/dL (31.8-35.4); Mean Corpuscular Hemoglobin 28.6 pg (27.0-31.2); Mean Corpuscular Volume 89.8 fl (81-99); Mean Platelet Volume 11.2 fl (7.4-10.4); Monocytes # 0.6 K/mm3 (0.1-1.0); Monocytes % 6.5 % (1.7-9.3); Neutrophils # 5.8 K/mm3 (1.8-7.8); Neutrophils % 62.7 % (37.0-80.0); Platelet Count 381 K/mm3 (142-424); Red Blood Count 5.25 M/mm3 (4.20-5.40); Red Cell Distribution Width 14.4 % (11.5-17.5); White Blood Count 9.2 K/mm3 (4.8-10.8)
== END ==
PROVIDERS: PCP Family Medicine; Visit Provider Family Medicine
DX: J40 Bronchitis, not specified as acute or chronic; J82.83 Eosinophilic asthma; R53.83 Other fatigue; R06.02 Shortness of breath; R05.8 Other specified cough; J44.1 Chronic obstructive pulmonary disease with (acute) exacerbation
CPT/HCPCS: 85025; 87636

== ENCOUNTER → 2023-02-18 23:49 | Outpatient (CLI) | payer MEDICARE, MEDICAID, SELFPAY ==
[2023-02-18 19:52] LABS: Hemoglobin A1C 5.9 % (4.0-6.0)
[2023-02-18 20:22] LABS: Chloride 110 mmol/L (98-107)
[2023-02-18 20:23] LABS: Potassium 4.1 mmoL/L (3.5-5.1); Sodium 140 mmol/L (136-145)
[2023-02-18 20:25] LABS: Alanine Aminotransferase 26 U/L (12-78); Anion Gap 9.1 mEq/L (5-15); Aspartate Amino Transferase 32 U/L (14-36); Blood Urea Nitrogen 20 mg/dl (7-17); Carbon Dioxide 25 mmol/L (22.0-30.0); Estimated Glomerular Filt Rate 61 ml/min (>60); GFR (African American) 73 ML/MIN (>60)
[2023-02-18 20:26] LABS: Albumin Level 4.1 g/dl (3.5-5.0); Albumin/Globulin Ratio 1.4 (1.1-1.8); Bilirubin,Total 0.3 mg/dl (0.2-1.3); Calcium 9.8 mg/dl (8.4-10.2); Chol/HDL Ratio 4.8 (1-3.5); Cholesterol 275 mg/dl (140-200); Globulin 2.9 g/dL (1.3-3.2); Glucose 121 mg/dl (74-100); HDL Cholesterol 57 mg/dl (40-60); Triglycerides 257 mg/dl (30-150); VLDL Cholesterol 51 mg/dL (0-40)
[2023-02-18 20:37] LABS: Direct LDL Cholesterol 146.25 mg/dL (100-129)
[2023-02-18 20:57] LABS: Thyroid Stimulating Hormone 2.31 uIU/mL (0.465-4.68)
[2023-02-18 21:44] LABS: Alkaline Phosphatase 117 U/L (38-126)
== END ==
PROVIDERS: PCP Family Medicine; Visit Provider Family Medicine
DX: J82.83 Eosinophilic asthma (principal); E78.5 Hyperlipidemia, unspecified; E11.9 Type 2 diabetes mellitus without complications; E07.9 Disorder of thyroid, unspecified
CPT/HCPCS: 80053; 80061; 83036; 84443

== ENCOUNTER 2023-10-20 11:16 | Outpatient (CLI) | payer MEDICARE, MEDICAID, SELFPAY ==
[2023-10-20 18:08] LABS: Basophils # 0.1 K/mm3 (0-0.2); Basophils % 0.6 % (0.1-2.0); Eosinophils # 0.3 K/mm3 (0.0-0.4); Eosinophils % 4.1 % (0.1-12.0); Hemoglobin 15.1 g/dL (12.2-16.2); Lymphocytes # 2.1 K/mm3 (0.7-4.5); Mean Corpuscular HGB Conc 32.2 g/dL (31.8-35.4); Mean Corpuscular Hemoglobin 29.3 pg (27.0-31.2); Mean Platelet Volume 9.9 fl (7.4-10.4); Monocytes # 0.4 K/mm3 (0.1-1.0); Monocytes % 6.1 % (1.7-9.3); Neutrophils # 4.3 K/mm3 (1.8-7.8); Neutrophils % 60.2 % (37.0-80.0); Platelet Count 436 K/mm3 (142-424); Red Blood Count 5.16 M/mm3 (4.20-5.40); Red Cell Distribution Width 14.1 % (11.5-17.5); White Blood Count 7.1 K/mm3 (4.8-10.8)
[2023-10-20 19:35] LABS: Alanine Aminotransferase 21 U/L (12-78); Albumin Level 3.9 g/dl (3.5-5.0); Albumin/Globulin Ratio 1.4 (1.1-1.8); Alkaline Phosphatase 110 U/L (38-126); Anion Gap 11.6 mEq/L (5-15); Aspartate Amino Transferase 27 U/L (14-36); Bilirubin,Total 0.5 mg/dl (0.2-1.3); Blood Urea Nitrogen 18 mg/dl (7-17); Calcium 10.4 mg/dl (8.4-10.2); Carbon Dioxide 25 mmol/L (22.0-30.0); Chloride 110 mmol/L (98-107); Chol/HDL Ratio 4.5 (1-3.5); Cholesterol 277 mg/dl (140-200); Estimated Glomerular Filt Rate 54 ml/min (>60); GFR (African American) 65 ML/MIN (>60); Globulin 2.8 g/dL (1.3-3.2); Glucose 103 mg/dl (74-100); HDL Cholesterol 62 mg/dl (40-60); Potassium 4.6 mmoL/L (3.5-5.1); Sodium 142 mmol/L (136-145); Total Protein,Serum 6.7 g/dl (6.3-8.2); Triglycerides 237 mg/dl (30-150); VLDL Cholesterol 47 mg/dL (0-40)
[2023-10-20 19:49] LABS: Direct LDL Cholesterol 147.64 mg/dL (100-129)
[2023-10-20 20:06] LABS: Thyroid Stimulating Hormone 2.76 uIU/mL (0.465-4.68)
== END 2023-10-20 23:59 | disposition home or self-care (01) ==
LOC: LAB.DROPOF 10-21 11:17
PROVIDERS: PCP Family Medicine; Visit Provider Family Medicine
DX: E78.5 Hyperlipidemia, unspecified (principal); K21.9 Gastro-esophageal reflux disease without esophagitis; Z90.5 Acquired absence of kidney
CPT/HCPCS: 80050; 80053; 80061; 84443; 85025

== ENCOUNTER 2023-11-03 07:29 | Outpatient (CLI) | payer MEDICARE, MEDICAID, SELFPAY ==
[2023-11-03] VITALS (8 sets, daily range): BP systolic 101–190; BP diastolic 64–93; PULSE 55–68; RESP 16; TEMP 36.6; O2SAT 94–97; BMI 36.3
--- NOTE | 2023-11-03 07:30 | CT_ITS ---
APPROVED REPORT [place]: CLINICAL INDICATION Chest Pain TECHNIQUE Image Acquisition: A 128 slice MDCT scanner ([employer] View) was used for data acquisition. A noncontrast coronary calcium scan was performed. A CT attenuation threshold of 130 Hounsfield units (HU) was used for the detection of calcium in contiguous voxels of 1 sq mm in area to be counted as individual lesions. Bolus tracking in the ascending aorta with a threshold of 180 HU was performed. Immediately afterwards, ECG synchronized cardiac CT was then performed from the cardiac base to apex using retrospective gating with ECG tube current modulation. A total of 85 mL of Isovue 370 mg/mL contrast medium was administered at 5 mL/sec followed by a saline flush using a biphasic injection protocol. A tube voltage of 120 KVp was used. The patient received the following medications prior to the cardiac CT. 5 mg of intravenous metoprolol 0.8 mg of sublingual nitroglycerin The average heart rate at the time of acquisition was 65 bpm and regular. Image Reconstruction Transaxial images were reconstructed at 0.67 mm slide thickness. Data was reviewed interactively on an advanced workstation capable of 2 and 3-dimensional displays in all conventional reconstruction formats, including multiplanar reformations, maximum intensity projections, curved multiplanar reformations, and volume rendered reconstructions. When applicable, selected routine images describing the relevant coronary anatomy and pathology were saved and sent to PACS. Complications None Technical Quality Overall image quality was suboptimal due to significant motion and step artifact. Some segments are not well-visualized. Coronary artery opacification was fair. Total DLP (Dose-Length Product) is 2070.3 mGy-cm. The reported value represents the total of one or more individual components during the CT acquisition of this date and at this time, and as such, the same value may appear in more than one CT report depending on the interpreting/reporting physicians. COMPARISON None FINDINGS CT Coronary Calcium Scoring LMA (Left Main Artery) = 0 LAD (Left Anterior Descending) = 5 LCX (Left Coronary Circumflex) = 0 RCA (Right Coronary Artery) = 1 Total Calcium Score = 6 using the AJ-130 method. The observed calcium score of 6 is at 21st percentile for subjects of the same age, sex, and race/ethnicity. The interpretation of the calcium heart score is based on the following continuum*: 0 = no calcified plaque detected (risk of coronary artery disease is very low ??? less than 5%) 1-10 = calcium detected in extremely minimal levels (risk of coronary diseases is still low ??? less than 10%) 11-100 = mild levels of plaque detected with certainty (mild or minimal narrowing of heart arteries is likely) 101-400 = definite,at least moderate levels of plaque detected (relatively high risk of a heart attack within 3-5 years) >401-999 = extensive levels of plaque detected (high risk of heart attack, high levels of vascular disease are present, high likelihood of at least one significant coronary narrowing) *The calcium heart score quantifies the burden of coronary calcification/plaque in the coronary arteries. The calcium heart score is not able to evaluate the presence or burden of non-calcified (i.e. soft) plaque. There is also calcification noted in the descending thoracic aorta. Coronary CT Angiography The coronary arterial system is right dominant. Quantitative Stenosis Grading: Left Main (LM): The left main originates normally from the left sinus of Valsalva. The LM bifurcates into the left anterior descending artery and left circumflex artery. The LM is patent with no evidence of atherosclerosis. Left
== END 2023-11-03 08:50 | disposition home or self-care (01) ==
PROVIDERS: PCP Family Medicine; Visit Provider Internal Medicine
DX: R07.89 Other chest pain (principal); R06.09 Other forms of dyspnea; I10 Essential (primary) hypertension
CPT/HCPCS: 75574; Q9967

== ENCOUNTER 2023-11-24 11:41 | Outpatient (CLI) | payer MEDICARE, MEDICAID, SELFPAY ==
--- NOTE | 2023-11-24 11:42 | CA_ITS ---
APPROVED REPORT EXAM: Comprehensive 2D, Doppler, and color-flow Echocardiogram Chemical Machine Tender: Carla Mcknight RVT Ht: 5 ft 3 in Wt: 205lbs BSA: 1.95 BP: 156/75 mmHg Indications: CP,HTN,ALONSO 2D Dimensions IVSd 0.96 cm F: 0.6-1.0 LVEF (Visual) 70.40 % PWd 0.68 cm F: 0.6 - 1.0 LA Volume 53.10 mL LVDd 4.79 cm F: 3.9 - 5.3 LA Volume Index 27.09 mL/m2 (M/F) 16-34 LVDs 2.88 cm F: 2.2 - 3.5 M-Mode Dimensions LA Diam 3.53 cm (1.9-4.0) TAPSE 2.68 (<1.7) LV Diastology E Decel Time 243 (160-240 msec) E/A Ratio 1.0 Aortic Valve RONALD Index 1.29 cm2/m2 AoV Peak Ryan. 137.0 (50-130 cm/s) AI PHT 745.00 ms AO Peak GR. 7.50 mmHg AO Mean GR. 4.70 (<5 mmHg) AO VTI 37.0 (18-25 cm) RONALD (VTI) 2.58 (2.5-4.5 cm2) Mitral Valve MV E Max Ryan. 90.0 (40-130 cm/s) MV A Velocity 91.0 (40-130 cm/s) E/A Ratio 0.99 MV PHT 71.0 ms Pulmonary Valve PV Peak Velocity 91.0 (50-150 cm/s) Left Ventricle The left ventricle is normal size. The left ventricular systolic function is normal. The left ventricular ejection fraction is within the normal range. There is increased LV wall thickness. There is normal LV segmental wall motion. The left ventricular diastolic function is normal. LVEF is 55%. Right Ventricle The right ventricle is mildly dilated. The right ventricular systolic function is normal. Atria The left atrium size is normal. The right atrium size is normal. There is no Doppler evidence of interatrial shunt. Aortic Valve Aortic valve is mildly thickened. Mild aortic regurgitation. There is no aortic valvular stenosis. Mitral Valve The mitral valve is normal in structure. No evidence of mitral valve stenosis. Mild mitral regurgitation. Tricuspid Valve The tricuspid valve leaflets are thin and pliable. Trace tricuspid regurgitation. There is insufficient TR jet to estimate RVSP. Pulmonic Valve The pulmonary valve is normal in structure. Trace pulmonic regurgitation. Great Vessels The aortic root is normal in size. The ascending aorta is not well-visualized. IVC is normal in size and collapses >50% with inspiration. Pericardium There is no pericardial effusion. Other Information Study Quality: Fair Conclusion Normal biventricular systolic function. Mild RV dilation. Mild AI, mild MR. Electronically signed by : Dorie Davis MD 11/29/2023 12:13:20
== END 2023-11-24 23:59 | disposition home or self-care (01) ==
LOC: RT 11:42
PROVIDERS: PCP Family Medicine; Visit Provider Internal Medicine
DX: I51.7 Cardiomegaly (principal); R07.89 Other chest pain; R06.09 Other forms of dyspnea; Z86.718 Personal history of other venous thrombosis and embolism
CPT/HCPCS: 93306

== ENCOUNTER 2024-03-14 10:33 | Outpatient (CLI) | payer MEDICARE, MEDICAID, SELFPAY ==
--- NOTE | 2024-03-14 10:39 | CA_ITS ---
FINAL REPORT TECHNIQUE: Color Doppler, duplex Doppler and compression sonography of the right lower extremity venous system was performed. CLINICAL HISTORY: cellulitis >2weeks, Varicose veins, Previous history of DVT COMPARISON: None FINDINGS: There is no evidence of deep venous thrombosis in the right lower extremity from the level of the groin to the calf. The veins are patent and compressible. IMPRESSION: No evidence of deep venous thrombosis right lower extremity. Reviewed, Interpreted and Dictated by David Ventura III, MD Transcribed by Octavia Nation Authenticated and [facility]
== END 2024-03-14 23:59 | disposition home or self-care (01) ==
LOC: RT 10:33
PROVIDERS: PCP Nurse Practitioner; Visit Provider Nurse Practitioner
DX: M79.604 Pain in right leg (principal)
CPT/HCPCS: 93971

== ENCOUNTER 2024-07-25 10:30 | Day surgery (SDC) | payer MEDICARE, MEDICAID, SELFPAY ==
[2024-07-25] MEDS: TETRACAINE 0.5% OPTH SOL 15ML OP ×3 (12:45→12:55)
[2024-07-25] MEDS: PHENYLEPHRINE 2.5% OPHTH SOLN 2ML OP ×3 (12:45→12:55)
[2024-07-25] MEDS: CYCLOPENTOLATE 2% OPHTH SOLN 2ML BOTTLE OP ×3 (12:45→12:55)
[2024-07-25 12:53] VITALS: BP 170/74; PULSE 54; RESP 18; O2SAT 98; BMI 35.4
[2024-07-25] MEDS: SODIUM CHLORIDE 0.9% 10ML FLUSH SYRINGE 10 ML IV ×2 (13:01→13:38)
[2024-07-25 13:35] VITALS: BP 172/90; PULSE 55; RESP 16; O2SAT 100
[2024-07-25] MEDS: MIDAZOLAM 2MG/2ML VIAL 1 MG IV (13:37)
[2024-07-25] MEDS: LIDOCAINE 1% PF 2ML AMPULE 2 ML IJ (13:37)
[2024-07-25] MEDS: TOBRAMYCIN/DEX OPTH SUSP 2.5ML OP (13:37)
[2024-07-25] MEDS: TIMOLOL 0.5% OPTH SOLN 5ML OP (13:38)
[2024-07-25 13:40] VITALS: BP 174/86; PULSE 54; RESP 16; O2SAT 100
[2024-07-25 13:45] VITALS: BP 176/93; PULSE 57; RESP 16; O2SAT 100
[2024-07-25 13:48] VITALS: BP 181/85; PULSE 55; RESP 16; O2SAT 100
[2024-07-25 13:50] VITALS: BP 160/90; PULSE 80; RESP 16; TEMP 36.2; O2SAT 97
--- NOTE | 2024-07-25 14:27 | HMH.PROCNOTE ---
[facility] Procedure Note Date: 07/25/24 Time: 14:27 Procedure Note:: Preoperative Diagnosis: Cataract combined NS Cortical Complex [Left] Eye Postop diagnosis: same Operation: Microscopic phacoemulsification with intraocular lens implant [Left] Eye Specimen: None Blood Loss: None The patient was examined in the office with a complaint of poor vision in the [left] eye. The patient reports that this interferes with ADLs such as reading, watching TV and/or driving or the vision is like looking through a foggy haze and is very troubling. The patient was examined and found to have a visually significant cataract with best corrected vision of [20/400] by refraction and/or glare testing. Treatment options, risks and benefits were explained and the patient elected to have cataract surgery in an attempt to improve their vision. The patient had the eye anesthetized with topical tetracaine, the eye ways prepped and draped in the usual fashion for cataract surgery. A paracentesis and a temporal keratotomy were made. 0.2cc of 1% lidocaine PF was placed into the anterior chamber. And aqueous/viscoelastic exchange was done and a 360 degree capsulorexis was performed. Through hydrodissection and delineation with BSS on a cannula was done. The lens nucleus was phecoemulsified with CDE of [5.94 ]. Residual cortical material was removed using automated I&A The capsular bag was deepened with viscoelastica and a PCIOL was placed in the capsular bag with good centration and stability. Residual viscoelastic was removed using automated I&A. The keratotomy incision was hydrated with BSS on a cannula. The wound were checked and found to be water tight. IOP was checked digitally and adjusted as needed so as not to be too high. 1 drop of timolol 0.5%, ofloxacin, prednisolone acetate and ketorolac was instilled and eye shield taped over the eye. The patient was taken to recovery in good condition and will be seen postoperatively.
== END 2024-07-25 13:57 | disposition home or self-care (01) ==
PROVIDERS: PCP Family Medicine; Visit Provider Ophthalmology
PROC: (CPT 66984; principal; 2024-07-25 13:30)
DX: H25.812 Combined forms of age-related cataract, left eye (principal)
CPT/HCPCS: 66984; J2250; V2632

== ENCOUNTER 2025-02-13 07:44 | Day surgery (SDC) | payer MEDICARE, MEDICAID, SELFPAY ==
[2025-02-13 08:16] VITALS: BP 140/81; PULSE 62; RESP 18; TEMP 36.1; O2SAT 96; BMI 35.4
[2025-02-13] MEDS: TETRACAINE 0.5% OPTH SOL 15ML OP ×3 (08:22→08:23)
[2025-02-13] MEDS: CYCLOPENTOLATE 2% OPHTH SOLN 2ML BOTTLE OP ×3 (08:22→08:23)
[2025-02-13] MEDS: PHENYLEPHRINE 2.5% OPHTH SOLN 2ML OP ×3 (08:22→08:23)
[2025-02-13 09:40] VITALS: BP 199/94; PULSE 64; RESP 16; O2SAT 95
[2025-02-13] MEDS: MIDAZOLAM 2MG/2ML VIAL 1 MG IV (09:40)
[2025-02-13] MEDS: TIMOLOL 0.5% OPTH SOLN 5ML OP (09:41)
[2025-02-13] MEDS: LIDOCAINE 1% PF 2ML VIAL 2 ML IJ (09:41)
[2025-02-13] MEDS: TOBRAMYCIN/DEX OPTH SUSP 2.5ML OP (09:41)
[2025-02-13 09:45] VITALS: BP 189/96; PULSE 62; RESP 16; O2SAT 95
[2025-02-13 09:50] VITALS: BP 205/99; PULSE 64; RESP 16; O2SAT 95
[2025-02-13 09:55] VITALS: BP 207/100; PULSE 61; RESP 16; O2SAT 95
[2025-02-13 10:00] VITALS: BP 180/79; PULSE 64; RESP 17; O2SAT 97
--- NOTE | 2025-02-13 12:15 | P.PCN_ITS ---
[facility] Procedure Note Date: 02/13/25 Time: 12:15 Procedure Note:: Preoperative Diagnosis: Cataract combined NS Cortical Complex [Right] Eye Postop diagnosis: same Operation: Microscopic phacoemulsification with intraocular lens implant [Right] Eye Specimen: None Blood Loss: None The patient was examined in the office with a complaint of poor vision in the [right] eye. The patient reports that this interferes with ADLs such as reading, watching TV and/or driving or the vision is like looking through a foggy haze and is very troubling. The patient was examined and found to have a visually significant cataract with best corrected vision of [20/400] by refraction and/or glare testing. Treatment options, risks and benefits were explained and the patient elected to have cataract surgery in an attempt to improve their vision. The patient had the eye anesthetized with topical tetracaine, the eye ways prepped and draped in the usual fashion for cataract surgery. A paracentesis and a temporal keratotomy were made. 0.2cc of 1% lidocaine PF was placed into the anterior chamber. And aqueous/viscoelastic exchange was done and a 360 degree capsulorexis was performed. Through hydrodissection and delineation with BSS on a cannula was done. The lens nucleus was phecoemulsified with CDE of [6.29]. Residual cortical material was removed using automated I&A The capsular bag was deepened with viscoelastica and a PCIOL was placed in the capsular bag with good centration and stability. Residual viscoelastic was removed using automated I&A. The keratotomy incision was hydrated with BSS on a cannula. The wound were checked and found to be water tight. IOP was checked digitally and adjusted as needed so as not to be too high. 1 drop of timolol 0.5%, ofloxacin, prednisolone acetate and ketorolac was instilled and eye shield taped over the eye. The patient was taken to recovery in good condition and will be seen postoperatively.
== END 2025-02-13 10:15 | disposition home or self-care (01) ==
PROVIDERS: PCP Family Medicine; Visit Provider Ophthalmology
DX: H25.811 Combined forms of age-related cataract, right eye (principal); H02.836 Dermatochalasis of left eye, unspecified eyelid; H02.833 Dermatochalasis of right eye, unspecified eyelid; J82.83 Eosinophilic asthma; J44.89 Other specified chronic obstructive pulmonary disease; K21.9 Gastro-esophageal reflux disease without esophagitis; Z88.1 Allergy status to other antibiotic agents; Z88.5 Allergy status to narcotic agent; Z86.718 Personal history of other venous thrombosis and embolism; Z79.51 Long term (current) use of inhaled steroids; Z79.52 Long term (current) use of systemic steroids; Z79.899 Other long term (current) drug therapy
CPT/HCPCS: 66982; J2250; V2632